=== PATIENT | male | born 1980 ===

== ENCOUNTER 2017-02-02 14:05 | Emergency (ER) | payer OTHER ==
[2017-02-02 14:41] VITALS: BP 139/95
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
[2017-02-02] MEDS ORDERED: MOTRIN PO ONE (19:28)
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
== END 2017-02-02 21:01 | disposition home or self-care (01) ==
LOC: ED 14:05
DX: S66.911A Strain of unspecified muscle, fascia and tendon at wrist and hand level, right hand, initial encounter (principal); S20.211A Contusion of right front wall of thorax, initial encounter; F17.200 Nicotine dependence, unspecified, uncomplicated; V49.19XA Passenger injured in collision with other motor vehicles in nontraffic accident, initial encounter; Y92.488 Other paved roadways as the place of occurrence of the external cause; Y93.89 Activity, other specified; Y99.9 Unspecified external cause status
CPT/HCPCS: 71020